=== PATIENT | female | born 1995 | race Caucasian/White ===

== ENCOUNTER 2017-03-13 15:05 | Emergency (ER) | payer OTHER ==
[~2017-03-13] VITALS: Ht 162.6 cm; Wt 69.4 kg
[2017-03-13 15:28] VITALS: BP 135/83
== END 2017-03-13 16:08 | disposition home or self-care (01) ==
LOC: ER 15:05
DX: B00.1 Herpesviral vesicular dermatitis (principal); J02.9 Acute pharyngitis, unspecified